=== PATIENT | male | born 1960 ===

== ENCOUNTER 2017-11-09 07:22 | Day surgery (SDC) | payer OTHER ==
[~2017-11-09 07:22] MED LIST: ASPIR 8181 MG PO; ATORVASTATIN CA10 MG PO; GABAPENTIN800 MG PO; LOSARTAN-HCTZ1 EACH PO; VITAMIN D PO
== END 2017-11-09 17:20 | disposition home or self-care (01) ==
LOC: CIR.AMB 07:22
DX: M24.832 Other specific joint derangements of left wrist, not elsewhere classified (principal)

== ENCOUNTER 2022-06-23 06:17 | Day surgery (SDC) | payer OTHER | END 2022-06-23 19:35 | disposition home or self-care (01) | LOC: CIR.AMB 06:17 | PROVIDERS: ATTEND Orthopaedic Surgery Hand Surgery | DX: M24.831 Other specific joint derangements of right wrist, not elsewhere classified (principal); M19.031 Primary osteoarthritis, right wrist; S63.591A Other specified sprain of right wrist, initial encounter; Z20.822 Contact with and (suspected) exposure to COVID-19; I10 Essential (primary) hypertension; E78.49 Other hyperlipidemia | CPT/HCPCS: 25820; 29846; L8699 ==